=== PATIENT | male | born 1955 | race Caucasian/White ===

== ENCOUNTER 2020-08-30 12:01 | Inpatient (IN) | payer OTHER ==
[~2020-08-30] VITALS: Ht 180.3 cm; Wt 88.5 kg
[~2020-08-30 12:01] MED LIST: CYCLOBENZAPRINE5 MG PO; IBUPROFEN 800800 MG PO; KEFLEX500 MG PO; NOHOMEMEDICATIONS; NORCO 5-325 TA1 EACH PO
[2020-08-30 12:07] VITALS: BP 91/57
[2020-08-30 12:19] LABS: ABSOLUTE BASOPHILS 0.1 thou/uL (0.0-0.2); ABSOLUTE EOSINOPHILS 0.1 thou/uL (0.0-0.7); ABSOLUTE LYMPHOCYTES 3.7 thou/uL (0.8-5.3); ABSOLUTE MONOCYTES 0.6 thou/uL (0.0-1.2); ABSOLUTE NEUTROPHILS 5.6 thou/uL (1.6-8.1); BASOPHILS 1.1 %; EOSINOPHILS 1.4 %; HEMATOCRIT 45.8 % (42.0-52.0); HEMOGLOBIN 15.9 gm/dL (14.0-18.0); LYMPHOCYTES 36.2 %; MCH 31.1 pg (26.0-34.0); MCHC 34.8 g/dL (28.0-37.0); MCV 89.4 fL (80.0-100.0); MONOCYTES 6.3 %; MPV 7.7 fl. (7.2-11.1); NUCLEATED RBCS 0 /100WBC; PLATELET COUNT* 314 thou/uL (150-400); RBC 5.12 mil/uL (4.50-6.00); RDW-CV 13.9 % (10.5-14.5); WBC 10.2 thou/uL (4.0-11.0)
[2020-08-30 12:30] LABS: CALCIUM 8.8 mg/dL (8.5-10.1); POTASSIUM 3.9 mmol/L (3.5-5.1)
[2020-08-30 12:34] LABS: APTT 25.9 Seconds (25.0-31.3); INR 0.9
[2020-08-30 12:43] LABS: ALBUMIN 3.8 g/dL (3.4-5.0); CK-MB MASS 2.9 ng/mL (<0.5-3.6); TOTAL BILIRUBIN 0.4 mg/dL (<0.1-1.0); TOTAL PROTEIN 7.2 g/dL (6.4-8.2)
[2020-08-30 12:49] VITALS: BP 92/65
[2020-08-30 22:16] VITALS: BP 120/56
[2020-08-30 22:31] VITALS: BP 110/42
[2020-08-30 22:46] VITALS: BP 114/57
--- NOTE | 2020-08-31 02:38 | NUR ---
ASSUMED CARE OF PT AT 1900. PT IS ALERT AND ORIENTED. VSS. PERRLA. NO COMPLAINTS OF PAIN. PT IS IN SINUS RYTHM ON THE TELEMETRY. PT IS RESTING COMFORTABL IN BED. RESPIRATIONS ARE EVEN AND NONLABORED. WILL CONTINUE TO MONITOR PT.
[2020-08-31 03:51] LABS: ABSOLUTE BASOPHILS 0.1 thou/uL (0.0-0.2); ABSOLUTE EOSINOPHILS 0.2 thou/uL (0.0-0.7); ABSOLUTE LYMPHOCYTES 2.2 thou/uL (0.8-5.3); ABSOLUTE MONOCYTES 0.5 thou/uL (0.0-1.2); ABSOLUTE NEUTROPHILS 7.3 thou/uL (1.6-8.1); BASOPHILS 0.9 %; EOSINOPHILS 1.5 %; HEMOGLOBIN 14.8 gm/dL (14.0-18.0); LYMPHOCYTES 21.7 %; MCH 30.4 pg (26.0-34.0); MCHC 33.7 g/dL (28.0-37.0); MCV 90.2 fL (80.0-100.0); MONOCYTES 5.2 %; MPV 7.8 fl. (7.2-11.1); NUCLEATED RBCS 0 /100WBC; POLYS 70.7 %; RBC 4.87 mil/uL (4.50-6.00); RDW-CV 13.9 % (10.5-14.5); WBC 10.3 thou/uL (4.0-11.0)
[2020-08-31 03:56] LABS: CALCIUM 8.4 mg/dL (8.5-10.1); CREATININE 1.1 mg/dL (0.6-1.3); POTASSIUM 4.4 mmol/L (3.5-5.1)
[2020-08-31 04:04] LABS: PLATELET COUNT* 217 thou/uL (150-400)
--- NOTE | 2020-08-31 04:56 | NUR ---
PT RECEIVED FROM IN ICU IN ROOM 210. ALERT AND ORIENTED X4. PT ON RA. CALL LIGHT WITHIN REACH AND BED IN LOW POSITION. THIS NURSE AGREES WITH THE ASSESSMENT OF RENETTA VANEGAS, HOURLY ROUNDING DONE FOR PT SAFETY.
--- NOTE | 2020-08-31 07:51 | CON ---
[address] [address] CONSULTATION Name: STEVIEORTEGA Room: [address] IN ..#: [id number] Admission: 08/30/20 Attend Phys: Nikko Parnell MD Discharge: Date of : 59 Report #: [id number] THIS REPORT FOR: //name// cc: CIERRA - [place] family physician/PCP CIERRA - No family physician/PCP ~ DATE OF SERVICE: 08/30/2020 CARDIOLOGY CONSULTATION INDICATION: Chest pain. HISTORY OF PRESENT ILLNESS: This is a 65-year-old gentleman with a history of tobacco use, hypercholesterolemia, presenting with chest pain. About 1-2 hours prior to presentation, he developed substernal chest pressure, associated with diaphoresis and shortness of breath. He was watching TV at that time. He received some upsetting news. There was no history of fever, chills, or nausea. He has not seen a doctor in quite some time. PAST MEDICAL HISTORY: Hypercholesterolemia, untreated. Denies any diabetes or hypertension. ALLERGIES: None. MEDICATIONS: None. SOCIAL HISTORY: Positive tobacco use; 1-1/2 packs per day. FAMILY HISTORY: Negative for premature CAD. REVIEW OF SYSTEMS: Please see HPI. PHYSICAL EXAMINATION: VITAL SIGNS: Blood pressure is 91/60, heart rate is 67 beats per minute. GENERAL APPEARANCE: This is a well-developed, well-nourished male in mild distress. HEENT: Normocephalic, atraumatic. Oral mucosa moist. NECK: Supple. LUNGS: Clear to auscultation. CARDIAC: Regular rate and rhythm, S1, S2 positive. ABDOMEN: Soft. EXTREMITIES: No cyanosis, no edema. ECG reveals sinus rhythm with ST elevation in the inferior leads with slight depression in the high lateral leads. LABORATORY VALUES: [place] [address] CONSULTATION Name: STEVIETINO Room: [address]#: [id number] Admission: 08/30/20 Attend Phys: Nikko Parnell MD Discharge: Date of : 59 Report #: [id number] ASSESSMENT AND PLAN: 1. Acute inferior wall myocardial infarction, presenting with chest pain, shortness of breath, and diaphoresis. The plan is to take the patient emergently to the cardiac slab stripper. The patient understands and wishes to proceed. 2. Hypercholesterolemia, start statin therapy. 3. Tobacco use, complete smoking cessation is advised. <ELECTRONICALLY SIGNED> By: Garrison Carroll MD 08/31/20 0751 1254 1632Garrison Carroll MD /nt
[2020-08-31 08:00] VITALS: BP 118/71
[2020-08-31] MEDS ORDERED: METOPROLOL SUCC25 M1 PO (09:12)
[2020-08-31] MEDS ORDERED: ASA81BEC PO (09:12)
[2020-08-31] MEDS ORDERED: LIPITOR 40 MG T40 M1 PO (09:12)
[2020-08-31] MEDS ORDERED: EFFIENT10 MG PO (09:13)
[2020-08-31 09:16] LABS: CHOLESTEROL 211 mg/dL (<200); HDL CHOLESTEROL 26 mg/dL (>40); LDL CHOLESTEROL 133 mg/dL (<100); TC:HDL 8.1 Ratio (Not establshd); TRIGLYCERIDE 261 mg/dL (<150); VLDL 52 mg/dL (<40)
[2020-08-31 09:17] LABS: SERUM ASSESSMENT Clear
--- NOTE | 2020-08-31 11:09 | CARD ---
[address] [address] CARDIAC CATH REPORT Name: STEVIETINO Sarmiento Room: [address] IN [facility].#: [id number] Admission: 08/30/20 Attend Phys: Nikko Parnell MD Discharge: Date of : 59 Report #: [id number] THIS REPORT FOR: //name// cc: CIERRA [place] No family physician/PCP CIERRA [place] No family physician/PCP ~ APPROVED REPORT Study performed: 08/30/2020 12:41:08 Patient Details Patient Status: ED Room #: The patient is a 65 year-old male Event Personnel Garrison Carroll Dowel Sander Operator, Dejah España RN Counter Supply Worker, Anabelle Riley RN Monitor, Sunny Bejarano Scrub Procedures Performed Art Access - R femoral artery* Left Heart Cath w/or w/o Coronaries [id number] [facility] w/wo Plasty Single RCA 228190 Hemostasis with Manual pressure Indication STEMI (>0 to less than or equal to 6 hours), Dyspnea, Chest pain Risk Factors Hypercholesterolemia, Hypertension, Tobacco History () Admission/Lab Medications/Medications given during procedure Aspirin, Platelet Aff. Inhib., Effient, Aggrastat, Heparin Procedure Narrative The patient was brought emergently to the Cardiac Catheterization Laboratory and was prepped and draped in a sterile manner. The right femoral was infiltrated with 2% Lidocaine subcutaneous anesthesia. A Viola 6 FR sheath was inserted into the right femoral artery. Coronary angiography was performed using coronary diagnostic catheters. The right coronary system was accessed and visualized with a JR4 6frDiagnostic catheter. The left coronary system was accessed and visualized with a JL4 6frDiagnostic catheter. The patient tolerated the procedure well and there were no complications associated with the procedure. Intraoperative [place] [address] CARDIAC CATH REPORT Name: TINO HUBBARD M Room: [address] IN [facility]#: [id number] Admission: 08/30/20 Attend Phys: Nikko Parnell MD Discharge: Date of : 59 Report #: [id number] No sedation given, Case start: 13:02 Case end 13:42 Fluoro Time: 11.5 minutes Dose: DAP 89014 cGycm2 1272 mGy Contrast Type and Amount: Visipaque 150 ml Coronary Angiography The patient's coronary anatomy is right dominant. Diagnostic Cath Left Main The left main artery is a large-caliber vessel, patent with no flow-limiting lesions. LAD The LAD is a moderate size caliber vessel, traverses the anterior wall and wraps around the apex. There is minimal plaquing in the proximal segment. There is mild systolic compression in the mid segment. Diagonal 1 This is a moderate-sized caliber vessel, patent with no flow-limiting lesions. Circumflex This is a moderate-sized caliber vessel, with no flow-limiting lesions. OM1 This is a moderate-sized caliber vessel, patent with no flow-limiting lesions. OM2 This is a small caliber vessel, with no flow-limiting lesions. Right Coronary The RCA is a dominant vessel with a long, severe stenosis in the midsegment, at least 99% with FABIÁN II flow. R PDA This is a moderate-sized caliber vessel, patent with no flow-limiting lesions. RPLV This is a moderate-sized caliber vessel, patent with no flow-limiting lesions. Left Ventriculography The left ventricle is normal in size with Decreased contractility. The left ventricular ejection fraction is estimated to be 40-45%. Left ventricular wall motion abnormalities are present. There is hypokinesis of the inferior wall. Hemodynamics The aortic pressure is 112/52 mmHg with a mean of 73 mmHg. The left ventricular pressure is 103/7 mmHg with a mean of mmHg. The left ventricular end diastolic pressure is 20 mmHg. PCI Technique Lesion Patient was preloaded with Effient. Percutaneous coronary intervention was performed on the mid right coronary artery. The lesion stenosis prior to intervention was 99% with FABIÁN 2 flow. A JR4 [place] [address] CARDIAC CATH REPORT Name: TINO HUBBARD Room: [address] IN .R.#: [id number] Admission: 08/30/20 Attend Phys: Nikko Parnell MD Discharge: Date of : 59 Report #: [id number] 6fr Guide Catheter was used to engage the ostium. A IG: Luge Wire 180 Interventional Guidewire was used to cross the lesion. BALLOON DILATION A Balloon catheter Trek RX 2.5 X 15 was inserted and inflated up to 12.00atm for 6seconds. Additional Inflation: 12.00atm for 5seconds. Additional Inflation: 15.00atm for 7seconds. STENT DEPLOYMENT A drug-eluting stent [place] RX Stent 3.5X26mm was inserted and inflated up to 14atm for 12seconds. After the initial stent placement, there was an edge dissection in the proximal border. This was covered with another 3.5 mm drug-eluting stent. POST STENT DEPLOYMENT BALLOON DILATION A Balloon catheter NC Treck RX3.50x15 was inserted and inflated up to 18 atmatm for 12 seconds. Final angiography reveals 0 % stenosis with FABIÁN 3 flow. PCI Technique Lesion 2 Percutaneous Coronary Intervention was performed on the proximal right coronary artery. Patient was preloaded with Effient. Stent Deployment A stent Xience Melany 3.5X15mm was inserted and inflated up to 14.00atm for 12seconds. Post Stent Deployment Balloon Dilation A Balloon catheter NC Treck RX3.50x15 was inserted and inflated up to 18.00atm for 6seconds. Additional Inflation: 18.00atm for 10seconds. Additional Inflation: 18.00atm for 7seconds. Conclusion 1. Successful insertion of drug-eluting stents into the mid RCA stenosis. 2. There is minimal plaque in the proximal LAD. 3. There is mild to moderate LV dysfunction. 4. Recommend dual antiplatelet therapy and aggressive risk factor management. <ELECTRONICALLY SIGNED> By: Garrison Carroll MD 08/31/20 1109 1109 1109Garrison Carroll MD /INF
[2020-08-31 12:17] VITALS: BP 110/70
[2020-08-31 12:44] VITALS: BP 110/70
--- NOTE | 2020-08-31 12:59 | NUR ---
PT RESTING WITHOUT COMPLAINTS. VSS ON RA. SR WITH 1ST DEGREE ON MONITOR. PT TO DC HOME IF CARDILOGY ALLOWS. WCTM
--- NOTE | 2020-08-31 12:59 | NUR ---
PT DCD TO HOME IN STABLE CONDITION. DC INSTRCUTIONS,FOLLOW UP CARE AND PRESCRIPTIONS REVIEWED. PT REPORTS UNDERSTANDING WITHOUT FURTHER QUESTIONS. PT TAKEN TO CAR BY STAFF WITH ALL OF BELONGINGS.
--- NOTE | 2020-08-31 14:06 | EKG ---
[place] [address] ELECTROCARDIOGRAM REPORT Name: TINO HUBBARD Room: [address] IN ..#: [id number] Admission: 08/30/20 Attend Phys: Nikko Parnell, Discharge: 08/31/20 Date of : 59 Date of Service: 08/30/20 1207 Report #: [id number] THIS REPORT FOR: //name// [facility] ED Test Date: 2020-08-30 Test Time: 12:07:13 Pat Name: TINO HUBBARD Department: Room: [facility] Gender: M Staffing Director: CCD : 1955 Requested By: Walter Siddiqui Order Number: [id number] MD: Eric Hughes Measurements Intervals [place]mp Rate: 67 P: 68 DE: 211 QRS: 70 QRSD: 93 T: 90 QT: 413 QTc: 436 Interpretive Statements Sinus rhythm Probable left atrial enlargement Inferior infarct, acute (RCA) Probable RV involvement, suggest recording right precordial leads Baseline wander in lead(s) II,III,aVF,V5,V6 Compared to ECG 10/11/2016 14:44:39 Myocardial infarct finding now present Atrial premature complex(es) no longer present ST (T wave) deviation no longer present Electronically Signed On 08-31-2020 14:06:11 MACHINE GROUP LEADER by Eric Hughes [email or web address] <ELECTRONICALLY SIGNED> By: Eric Hughes MD, [facility] 08/31/20 1406 120 1207 Eric Hughes MD, FAC /EPI
[2020-09-01 04:05] LABS: GLYCOHEMOGLOBIN (HGB A1C) 5.9 % (4.8-5.6)
--- NOTE | 2020-09-01 15:32 | NUR ---
Cardiac Rehab. Patient discharged over the weekend. Follow up call made and education given including IL/Stent, personal risk factor modification, wound care, medications, heart healthy diet, walking program, when to call the doctor and OPCR order. Patient states he will not be able to attend OPCR due to work commitments. This nurse will mail Cardiac Rehab and Heart Healthy Diet books to patient. Patient states he has his stent card and booklet and has already placed his card in his wallet.
--- NOTE | 2020-09-01 16:33 | EKG ---
[place] [address] ELECTROCARDIOGRAM REPORT Name: TINO HUBBARD Room: [address] IN M.R.#: [id number] Admission: 08/30/20 Attend Phys: Nikko Parnell, Discharge: 08/31/20 Date of : 59 Date of Service: 08/31/20 0450 Report #: [id number] THIS REPORT FOR: //name// [facility] Test Date: 2020-08-31 Test Time: 04:50:26 Pat Name: TINO HUBBARD Department: Room: [address] Gender: M Insurance Verifier: PEARL : 1955 Requested By: Nikko Parnell Order Number: [id number] Reading MD: Tino Ratliff Measurements Intervals [place] Rate: 67 P: 78 RI: 191 QRS: 38 QRSD: 84 T: 64 QT: 386 QTc: 408 Interpretive Statements Sinus rhythm Probable left atrial enlargement Compared to ECG 08/30/2020 12:07:13 Myocardial infarct finding no longer present Electronically Signed On 09-01-2020 16:33:09 FLAMER AFTER LASTING by Tino Ratliff [email or web address] <ELECTRONICALLY SIGNED> By: Tino Ratliff MD, FAC 09/01/20 1633 0450 0450 Tino Ratliff MD, [facility] /EPI
== END 2020-08-31 13:40 | disposition home or self-care (01) | DRG 246 ==
LOC: M.ERS 12:01 → M.CL 12:01 → M.ICU 13:50 → M.TBA-ER 13:50 → M.2W 13:50 → M.ICU 14:02 → M.2W 08-31 04:42
PROVIDERS: Family Medicine; Internal Medicine Cardiovascular Disease; ADMIT Internal Medicine; ATTEND Internal Medicine
PROC: 4A023N7 Measurement of Cardiac Sampling and Pressure, Left Heart, Percutaneous Approach (ICD-10-PCS; principal; 2020-08-30)
PROC: B211YZZ Fluoroscopy of Multiple Coronary Arteries using Other Contrast (ICD-10-PCS; principal; 2020-08-30)
PROC: 027035Z Dilation of Coronary Artery, One Artery with Two Drug-eluting Intraluminal Devices, Percutaneous Approach (ICD-10-PCS; principal; 2020-08-30)
PROC: B215YZZ Fluoroscopy of Left Heart using Other Contrast (ICD-10-PCS; principal; 2020-08-30)
DX: I21.19 ST elevation (STEMI) myocardial infarction involving other coronary artery of inferior wall (principal); I50.21 Acute systolic (congestive) heart failure; R57.0 Cardiogenic shock; E78.00 Pure hypercholesterolemia, unspecified; I25.10 Atherosclerotic heart disease of native coronary artery without angina pectoris; K21.9 Gastro-esophageal reflux disease without esophagitis; F17.200 Nicotine dependence, unspecified, uncomplicated; M19.90 Unspecified osteoarthritis, unspecified site; R73.9 Hyperglycemia, unspecified; I95.9 Hypotension, unspecified; Z88.2 Allergy status to sulfonamides

== ENCOUNTER → 2020-12-22 | Outpatient (CLI) | payer OTHER ==
[~2020-12-22] MED LIST changes: +ASA81BEC PO; +EFFIENT10 MG PO; +LIPITOR 40 MG T40 M1 PO; +METOPROLOL SUCC25 M1 PO
--- NOTE | 2020-12-22 11:26 | 2DMMODE ---
[place] [address] 2 D/M-MODE ECHOCARDIOGRAM Name: TINO HUBBARD Room: [facility]#: [id number] Admission: 12/22/20 Attend Phys: Jennifer Norris, Discharge: Date of : 59 Date of Service: 12/22/20 1126 Report #: [id number] THIS REPORT FOR: cc: Jennifer Norris MD, Tuongvan T. MD Blick, David R. MD [facility] ~ APPROVED REPORT Study performed: 12/22/2020 09:03:11 EXAM: Comprehensive 2D, Doppler, and color-flow Echocardiogram Patient Location: Out-Patient BSA: 2.11 HR: 58 bpm BP: 142/58 mmHg Other Information Study Quality: Fair Indications CAD 2D Dimensions IVSd: 10.58 (7-11mm) LVOT Diam: 20.25 (18-24mm) LVDd: 47.79 mm PWd: 10.31 (7-11mm) Ascending Ao: 32.14 (22-36mm) LVDs: 29.94 (25-40mm) Aortic Root: 30.06 mm Volumes Left Atrial Volume (Systole) LA ESV Index: 14.10 mL/m2 Aortic Valve AoV Peak Miguel Ángel.: 1.39 m/s AO Peak Gr.: 7.77 mmHg LVOT Max P.00 mmHg AO Mean Gr.: 4.60 mmHg LVOT Mean P.01 mmHg LVOT Max V: 0.71 m/s AO V2 VTI: 29.25 cm LVOT Mean V: 0.46 m/s VIKAS (VTI): 1.71 cm2 LVOT V1 VTI: 15.55 cm Mitral Valve E/A Ratio: 1.20 [place] [address] 2 D/M-MODE ECHOCARDIOGRAM Name: TINO HUBBARD Room: [facility]#: [id number] Admission: 12/22/20 Attend Phys: Jennifer Norris, Discharge: Date of : 59 Date of Service: 12/22/20 1126 Report #: [id number] MV Decel. Time: 232.06 ms MV E Max Miguel Ángel.: 0.75 m/s MV PHT: 67.30 ms MVA (PHT): 3.27 cm2 TDI E/Lateral E': 8.33 E/Medial E': 9.38 Medial E' Miguel Ángel.: 0.08 m/s Lateral E' Miguel Ángel.: 0.09 m/s Pulmonary Valve PV Peak Miguel Ángel.: 0.84 m/s PV Peak Gr.: 2.80 mmHg Left Ventricle The left ventricle is normal size. moderate hypokinesis noted of the apical wall There is normal left ventricular wall thickness. The left ventricular ejection fraction is within the normal range. LVEF is 50-55%. Grade I - abnormal relaxation pattern. Right Ventricle The right ventricle is normal size. The right ventricular systolic function is normal. Atria The left atrium size is normal. The right atrium size is normal. Aortic Valve The Aortic valve is sclerotic. No aortic regurgitation is present. There is no aortic valvular stenosis. Mitral Valve The mitral valve is normal in structure. There is no mitral valve regurgitation noted. No evidence of mitral valve stenosis. Tricuspid Valve The tricuspid valve is normal in structure. There is no tricuspid valve regurgitation noted. Pulmonic Valve The pulmonary valve is normal in structure. There is no pulmonic valvular regurgitation. Great Vessels The aortic root is normal in size. IVC is normal in size and collapses >50% [place] [address] 2 D/M-MODE ECHOCARDIOGRAM Name: TINO HUBBARD Room: [facility]#: [id number] Admission: 12/22/20 Attend Phys: Jennifer Norris, Discharge: Date of : 59 Date of Service: 12/22/20 1126 Report #: [id number] Pericardium There is no pericardial effusion. <Conclusion> LVEF is 50-55%. moderate hypokinesis noted of the apical wall The Aortic valve is sclerotic. <ELECTRONICALLY SIGNED> By: Guevara Escobar MD, [facility] 12/22/20 1126 1126 1126 Guevara Escobar MD, [facility] /INF
== END ==
LOC: M.CRD 08:00
PROVIDERS: ATTEND Family Medicine
DX: I35.1 Nonrheumatic aortic (valve) insufficiency (principal); I25.10 Atherosclerotic heart disease of native coronary artery without angina pectoris

== ENCOUNTER 2021-12-20 11:06 | Emergency (ER) | payer OTHER ==
[~2021-12-20] VITALS: Ht 180.3 cm; Wt 74.4 kg
[2021-12-20 12:05] LABS: ABSOLUTE BASOPHILS 0.1 thou/uL (0.0-0.2); ABSOLUTE EOSINOPHILS 0.9 thou/uL (0.0-0.7); ABSOLUTE LYMPHOCYTES 1.9 thou/uL (0.8-5.3); ABSOLUTE MONOCYTES 0.7 thou/uL (0.0-1.2); ABSOLUTE NEUTROPHILS 6.8 thou/uL (1.6-8.1); EOSINOPHILS 8.2 %; HEMATOCRIT 46.8 % (42.0-52.0); HEMOGLOBIN 16.1 gm/dL (14.0-18.0); LYMPHOCYTES 18.7 %; MCH 30.8 pg (26.0-34.0); MCHC 34.4 g/dL (28.0-37.0); MCV 89.4 fL (80.0-100.0); MONOCYTES 6.8 %; MPV 7.9 fl. (7.2-11.1); NUCLEATED RBCS 0 /100WBC; PLATELET COUNT* 241 thou/uL (150-400); POLYS 65.3 %; RBC 5.23 mil/uL (4.50-6.00); RDW-CV 14.7 % (10.5-14.5); WBC 10.4 thou/uL (4.0-11.0)
[2021-12-20 12:11] LABS: CALCIUM 8.9 mg/dL (8.5-10.1); CREATININE 0.9 mg/dL (0.6-1.3); POTASSIUM 4.3 mmol/L (3.5-5.1)
[2021-12-20 12:22] LABS: ALBUMIN 4.2 g/dL (3.4-5.0); TOTAL BILIRUBIN 0.7 mg/dL (<0.1-1.0); TOTAL PROTEIN 7.8 g/dL (6.4-8.2)
[2021-12-20 12:41] LABS: INFLUENZA A ANTIGEN Negative (Negative); INFLUENZA B ANTIGEN Negative (Negative)
[2021-12-20] MEDS ORDERED: TESSALON PERLE100 MG PO (12:44)
[2021-12-20 13:02] VITALS: BP 130/65
--- NOTE | 2021-12-21 09:48 | EKG ---
[place] [address] ELECTROCARDIOGRAM REPORT Name: TINO HUBBARD Room: [facility]#: [id number] Admission: 12/20/21 Attend Phys: Discharge: 12/20/21 Date of : 59 Date of Service: 12/20/21 1138 Report #: [id number] THIS REPORT FOR: //name// [facility] ED Test Date: 2021-12-20 Test Time: 11:38:11 Pat Name: TINO HUBBARD Department: Room: Gender: Director Of Early Childhood Education: : 1955 Requested By: Brandon Villarreal Order Number: [id number] MD: Guevara Escobar Measurements Intervals [place] Rate: 68 P: 55 MD: 213 QRS: 57 QRSD: 107 T: 51 QT: 380 QTc: 405 Interpretive Statements Sinus rhythm Borderline prolonged MD interval Compared to ECG 08/31/2020 04:50:26 ST (T wave) deviation no longer present Electronically Signed On 12-21-2021 9:48:11 CONSULTING SOLUTION MANAGER by Guevara Escobar [email or web address] <ELECTRONICALLY SIGNED> By: Guevara Escobar MD, [facility] 12/21/21 0948 1138 1138 Guevara Escobar MD, [facility] /EPI
== END 2021-12-20 13:05 | disposition home or self-care (01) ==
LOC: M.ERS 11:06
PROVIDERS: Physician Assistant Medical
DX: B34.9 Viral infection, unspecified (principal); Z20.822 Contact with and (suspected) exposure to COVID-19; E78.00 Pure hypercholesterolemia, unspecified; K21.9 Gastro-esophageal reflux disease without esophagitis; F17.210 Nicotine dependence, cigarettes, uncomplicated